=== PATIENT | male | born 1930 | race Caucasian/White ===

== ENCOUNTER 2017-01-19 19:20 | Inpatient (IN) | payer OTHER ==
[~2017-01-19] VITALS: Ht 170.2 cm; Wt 68.1 kg
[~2017-01-19 19:20] MED LIST: ADVAIR 100-501 EACH IH; ALBUTEROL2.5 MG/3 M IH; Advair HFA 115/21 IH; COUMADIN,JANTOVE5 MG PO; Cardizem CD,Cartia X PO; DIGOXIN125 MCG PO; DILTZAC PO; Diflucan PO; FINASTERIDE5 M1 PO; LANOXIN,DIGI0.125 MG PO; Levaquin PO; PREDNISONE50 MG PO; Proscar PO; Protonix PO; TAZTIA XT360 MG PO; WARFARIN SODIUM5 MG PO; ZITHROMAX Z-PA250 MG PO
[2017-01-19 19:50] LABS: MEAN PLAT.VOLUME 9.5 uM^3 (9.0-12.4); PLATELET COUNT 190 K/uL (156-360)
[2017-01-19 20:15] LABS: CHLORIDE 85 mEq/L (99-109); POTASSIUM 3.8 mEq/L (3.7-5.4); SODIUM 120 mEq/L (136-147)
[2017-01-19 20:17] LABS: GLUCOSE 117 mg/dL (70-99)
[2017-01-19 20:18] LABS: ANION GAP 9 MEQ/L (2-14)
[2017-01-19 20:21] LABS: GFR ESTIMATE (CALCULATED) > 59 mL/min/
[2017-01-19 20:22] LABS: UREA NITROGEN (BUN) 8 mg/dL (9-23)
[2017-01-19 20:24] LABS: INTER. NORMALIZED RATIO 1.2; PROTHROMBIN TIME 12.2 (9.2-11.2); PTT 27.3 (25-32)
[2017-01-19 20:26] LABS: HEMATOCRIT 30.1 % (38.0-50.0); MCH 24.4 PG (29.0-34.0); MCHC 30.9 G/DL (30.0-36.0); RBC DIS.WIDTH-CV 18.4 % (11.8-14.6); RBC DIS.WIDTH-SD 49.7 % (39-53); RED BLOOD COUNT 3.81 M/uL (4.00-5.50)
[2017-01-19 20:27] LABS: WHITE BLOOD COUNT 75.9 K/uL (4.1-10.2)
[2017-01-19 21:00] LABS: CHLORIDE 86 mEq/L (99-109); SODIUM 121 mEq/L (136-147)
[2017-01-19 21:02] LABS: GLUCOSE 112 mg/dL (70-99)
[2017-01-19 21:04] LABS: ANION GAP 9 MEQ/L (2-14); TOTAL BILIRUBIN 0.6 mg/dL (0.0-1.0)
[2017-01-19 21:06] LABS: ALKALINE PHOSPHATASE 101 IU/L (3-129); GFR ESTIMATE (CALCULATED) > 59 mL/min/
[2017-01-19 21:07] LABS: UREA NITROGEN (BUN) 8 mg/dL (9-23)
[2017-01-19 21:14] LABS: ABS NEUTROPHIL COUNT 7.7; ANISOCYTOSIS 2+; BAND NEUTROPHILS 0.9 % (0-8.0); EOSINOPHIL ABS CT 0; HEMATOLOGY COMMENT 1 OTHERS=IMMATURE LYMPHOCYTES; HYPOCHROMASIA 1+; INSTRUMENT ABS NEUTROPHIL CT 4.5 K/uL; LYMPHOCYTES 66.7 % (15.0-45.0); MICROCYTOSIS 2+; OVALOCYTES 1+; PLAT.SUFFICIENCY ADEQUATE; POLYCHROMASIA 1+; SEG.NEUTROPHILS 9.3 % (46.0-76.0); SMUDGE CELLS 59.3; STOMATOCYTES 1+
[2017-01-19] MEDS ORDERED: PROTONIX40 MG PO (23:04)
[2017-01-19] MEDS ORDERED: LANOXIN125 MCG PO (23:05)
[2017-01-19] MEDS ORDERED: ADVAIR 100/501 DISK IH (23:05)
[2017-01-19] MEDS ORDERED: LO-DOSE ASPIRIN81 M1 PO (23:05)
[2017-01-19] MEDS ORDERED: VENTOLIN HFA18 GM IH (23:06)
[2017-01-19] MEDS ORDERED: DALIRESP500 MCG PO (23:06)
[2017-01-19] MEDS ORDERED: XARELTO15 MG PO (23:06)
[2017-01-19] MEDS ORDERED: SPIRIVA1 INHALATI IH (23:07)
[2017-01-20 01:06] LABS: ADD MIUA? NO; BILIRUBIN NEGATIVE; BLOOD NEGATIVE; COLOR YELLOW ((YELLOW)); GLUCOSE (STRIP) NEGATIVE; KETONES NEGATIVE; LEUKOCYTES NEGATIVE; NITRITE NEGATIVE; PROTEIN (STRIP) NEGATIVE; SPECIFIC GRAVITY 1.009 (1.000-1.030); UCUL ADDED? NO; UROBILINOGEN 0.2 MG/DL (0.2-1.0)
[2017-01-20 03:15] VITALS: BP 133/82
[2017-01-20 04:28] LABS: BASE EXCESS 2.9 mEq/L (-3 to +3); BICARBONATE 27.9 mEq/L (22-26); CARBOXY HGB 2.2 % (0-5); METHEMOGLOBIN 1.5 % (0-1.5); PCO2 44 mm Hg (35-45); PO2 85 mm Hg (80-100); pH 7.41 (7.35-7.45)
[2017-01-20 04:29] LABS: COMMENTS - BLOOD GASES C+A+; DEVICE NC; O2 FLOW 2.5 L/MIN; SITE LR; TOTAL RESP RATE 23 resp/min
[2017-01-20 07:09] LABS: TROP-I INTERPRETATION NEGATIVE; TROPONIN-I 0.01 ng/mL (0.0-0.30)
[2017-01-20 07:30] VITALS: BP 129/78
[2017-01-20 09:08] LABS: HEMATOCRIT 28.2 % (38.0-50.0); MCH 26.5 PG (29.0-34.0); MCHC 32.3 G/DL (30.0-36.0); MCV 82.2 FL (86-99); MEAN PLAT.VOLUME 10.7 uM^3 (9.0-12.4); PLATELET COUNT 192 K/uL (156-360); RBC DIS.WIDTH-SD 51.6 % (39-53); RED BLOOD COUNT 3.43 M/uL (4.00-5.50)
[2017-01-20 09:10] LABS: WHITE BLOOD COUNT 63.5 K/uL (4.1-10.2)
[2017-01-20 09:14] LABS: ANION GAP 8 MEQ/L (2-14); CHLORIDE 89 MEQ/L (99-109); POTASSIUM 3.9 MEQ/L (3.7-5.4); SAMPLE HEMOLYSIS CHECK 0; SAMPLE ICTERIC CHECK 0; SAMPLE LIPEMIA CHECK 0; SODIUM 123 MEQ/L (136-147)
[2017-01-20 09:20] LABS: GFR ESTIMATE (CALCULATED) > 59 mL/min/; GLUCOSE 138 mg/dL (70-99); UREA NITROGEN (BUN) 6 mg/dL (9-23)
[2017-01-20 11:10] VITALS: BP 135/79
[2017-01-20 11:10] LABS: INFLUENZA A VIRAL ANTIGEN NEGATIVE; INFLUENZA B VIRAL ANTIGEN NEGATIVE
[2017-01-20 11:34] LABS: ABS NEUTROPHIL COUNT 15.4; ANISOCYTOSIS 2+; BAND NEUTROPHILS 6.3 % (0-8.0); EOSINOPHIL ABS CT 0; MICROCYTOSIS 2+; PLAT.SUFFICIENCY ADEQUATE; POIKILOCYTOSIS 1+; SMUDGE CELLS 55.9
[2017-01-20 12:58] LABS: TROP-I INTERPRETATION NEGATIVE; TROPONIN-I 0.01 ng/mL (0.0-0.30)
[2017-01-20 16:08] VITALS: BP 105/61
[2017-01-20 20:00] VITALS: BP 102/51
[2017-01-21] VITALS (7 sets, daily range): BP systolic 102–125; BP diastolic 58–70
[2017-01-21 04:31] LABS: BASE EXCESS 4.6 mEq/L (-3 to +3); BICARBONATE 29.2 mEq/L (22-26); CARBOXY HGB 1.9 % (0-5); COMMENTS - BLOOD GASES C+; DEVICE NCHH; FI02 100 %; METHEMOGLOBIN 1.9 % (0-1.5); O2 FLOW 30 L/MIN; PCO2 43 mm Hg (35-45); PO2 285 mm Hg (80-100); SITE LR; pH 7.44 (7.35-7.45)
[2017-01-21 04:32] LABS: TOTAL RESP RATE 28 resp/min
[2017-01-21 07:09] LABS: MCH 25.4 PG (29.0-34.0); MCHC 31.4 G/DL (30.0-36.0); MCV 80.9 FL (86-99); MEAN PLAT.VOLUME 9.5 uM^3 (9.0-12.4); PLATELET COUNT 242 K/uL (156-360); RBC DIS.WIDTH-CV 18.6 % (11.8-14.6); RBC DIS.WIDTH-SD 50.8 % (39-53); RED BLOOD COUNT 3.46 M/uL (4.00-5.50)
[2017-01-21 07:22] LABS: WHITE BLOOD COUNT 79.1 K/uL (4.1-10.2)
[2017-01-21 07:48] LABS: ABS NEUTROPHIL COUNT 18.8; ANISOCYTOSIS 2+; BAND NEUTROPHILS 1.9 % (0-8.0); EOSINOPHIL ABS CT 0; INSTRUMENT ABS NEUTROPHIL CT 10.2 K/uL; MICROCYTOSIS 2+; PLAT.SUFFICIENCY ADEQUATE; SEG.NEUTROPHILS 21.9 % (46.0-76.0)
[2017-01-21 08:21] LABS: ANION GAP 10 MEQ/L (2-14); CHLORIDE 93 MEQ/L (99-109); GFR ESTIMATE (CALCULATED) > 59 mL/min/; GLUCOSE 155 mg/dL (70-99); SAMPLE HEMOLYSIS CHECK 0; SAMPLE ICTERIC CHECK 0; SAMPLE LIPEMIA CHECK 0; UREA NITROGEN (BUN) 10 mg/dL (9-23)
[2017-01-21 08:26] LABS: INTERNAL CONTROL VALID? YES
[2017-01-21 08:29] LABS: SODIUM 130 MEQ/L (136-147)
[2017-01-22 04:00] VITALS: BP 135/84
[2017-01-22 07:35] LABS: HEMATOCRIT 29.9 % (38.0-50.0); MCH 24.7 PG (29.0-34.0); MCHC 29.8 G/DL (30.0-36.0); MCV 83.1 FL (86-99); MEAN PLAT.VOLUME 9.7 uM^3 (9.0-12.4); PLATELET COUNT 273 K/uL (156-360); RBC DIS.WIDTH-CV 19.4 % (11.8-14.6); RBC DIS.WIDTH-SD 55.8 % (39-53)
[2017-01-22 07:37] VITALS: BP 108/66
[2017-01-22 07:41] LABS: WHITE BLOOD COUNT 66.7 K/uL (4.1-10.2)
[2017-01-22 07:44] LABS: ANION GAP 7 MEQ/L (2-14); CHLORIDE 99 MEQ/L (99-109); GFR ESTIMATE (CALCULATED) > 59 mL/min/; GLUCOSE 152 mg/dL (70-99); POTASSIUM 4.1 MEQ/L (3.7-5.4); SAMPLE HEMOLYSIS CHECK 0; SAMPLE ICTERIC CHECK 0; SAMPLE LIPEMIA CHECK 0; SODIUM 136 MEQ/L (136-147); UREA NITROGEN (BUN) 17 mg/dL (9-23)
[2017-01-22 08:53] LABS: ABS NEUTROPHIL COUNT 14.4; ANISOCYTOSIS 2+; BAND NEUTROPHILS 0.9 % (0-8.0); EOSINOPHIL ABS CT 0; INSTRUMENT ABS NEUTROPHIL CT 9.1 K/uL; MICROCYTOSIS 2+; PLAT.SUFFICIENCY ADEQUATE; POIKILOCYTOSIS 1+; SEG.NEUTROPHILS 20.7 % (46.0-76.0); SMUDGE CELLS 52.3
[2017-01-22 11:47] VITALS: BP 127/79
[2017-01-22 16:08] VITALS: BP 107/61
[2017-01-22 20:18] VITALS: BP 109/62
[2017-01-23 00:03] VITALS: BP 125/75
[2017-01-23 04:30] VITALS: BP 116/77
[2017-01-23 05:51] LABS: ANION GAP 7 MEQ/L (2-14); CHLORIDE 97 MEQ/L (99-109); GFR ESTIMATE (CALCULATED) > 59 mL/min/; GLUCOSE 161 mg/dL (70-99); POTASSIUM 4.4 MEQ/L (3.7-5.4); SAMPLE HEMOLYSIS CHECK 0; SAMPLE ICTERIC CHECK 0; SAMPLE LIPEMIA CHECK 0; SODIUM 134 MEQ/L (136-147); UREA NITROGEN (BUN) 22 mg/dL (9-23)
[2017-01-23 06:20] LABS: HEMATOCRIT 30.6 % (38.0-50.0); MCH 24.9 PG (29.0-34.0); MCHC 29.7 G/DL (30.0-36.0); MCV 83.8 FL (86-99); MEAN PLAT.VOLUME 9.3 uM^3 (9.0-12.4); PLATELET COUNT 267 K/uL (156-360); RBC DIS.WIDTH-CV 19.6 % (11.8-14.6); RBC DIS.WIDTH-SD 57.1 % (39-53); RED BLOOD COUNT 3.65 M/uL (4.00-5.50)
[2017-01-23 06:30] LABS: WHITE BLOOD COUNT 44.2 K/uL (4.1-10.2)
[2017-01-23 07:14] LABS: ABS NEUTROPHIL COUNT 11.9; ANISOCYTOSIS 2+; BAND NEUTROPHILS 0.9 % (0-8.0); EOSINOPHIL ABS CT 0; INSTRUMENT ABS NEUTROPHIL CT 8.3 K/uL; MICROCYTOSIS 2+; PLAT.SUFFICIENCY ADEQUATE; POLYCHROMASIA 1+; SEG.NEUTROPHILS 26.1 % (46.0-76.0); SMUDGE CELLS 25.2; SPHEROCYTES 1+
[2017-01-23 07:45] VITALS: BP 105/59
[2017-01-23 15:15] VITALS: BP 125/62
[2017-01-23 19:55] VITALS: BP 111/63
[2017-01-23 23:51] VITALS: BP 120/61
[2017-01-24 04:59] VITALS: BP 136/63
[2017-01-24 06:08] LABS: ANION GAP 9 MEQ/L (2-14); CHLORIDE 98 MEQ/L (99-109); GFR ESTIMATE (CALCULATED) > 59 mL/min/; GLUCOSE 164 mg/dL (70-99); SAMPLE HEMOLYSIS CHECK 0; SAMPLE ICTERIC CHECK 0; SAMPLE LIPEMIA CHECK 0; SODIUM 135 MEQ/L (136-147); UREA NITROGEN (BUN) 25 mg/dL (9-23)
[2017-01-24 06:24] LABS: HEMATOCRIT 28.6 % (38.0-50.0); MCH 25.7 PG (29.0-34.0); MCHC 30.8 G/DL (30.0-36.0); MCV 83.4 FL (86-99); MEAN PLAT.VOLUME 9.3 uM^3 (9.0-12.4); NRBC (%) 0.1 /100 WBC (0-0); PLATELET COUNT 274 K/uL (156-360); RBC DIS.WIDTH-CV 19.5 % (11.8-14.6); RBC DIS.WIDTH-SD 56.7 % (39-53); RED BLOOD COUNT 3.43 M/uL (4.00-5.50)
[2017-01-24 08:00] VITALS: BP 116/67
[2017-01-24 11:03] LABS: ABS NEUTROPHIL COUNT 4.1; ANISOCYTOSIS 1+; EOSINOPHIL ABS CT 0; INSTRUMENT ABS NEUTROPHIL CT 6.1 K/uL; MACROCYTES 1+; PLAT.SUFFICIENCY ADEQUATE; SEG.NEUTROPHILS 13.5 % (46.0-76.0)
[2017-01-24 11:20] VITALS: BP 114/62
[2017-01-24 16:00] VITALS: BP 118/68
[2017-01-24 19:14] VITALS: BP 145/79
[2017-01-25] VITALS (7 sets, daily range): BP systolic 110–157; BP diastolic 59–99
[2017-01-26 03:57] VITALS: BP 125/76
[2017-01-26 06:46] LABS: HEMATOCRIT 29.6 % (38.0-50.0); MCHC 32.1 G/DL (30.0-36.0); MCV 84.1 FL (86-99); MEAN PLAT.VOLUME 9.2 uM^3 (9.0-12.4); NRBC (%) 0.2 /100 WBC (0-0); PLATELET COUNT 254 K/uL (156-360); RBC DIS.WIDTH-CV 20.6 % (11.8-14.6); RBC DIS.WIDTH-SD 57.2 % (39-53); RED BLOOD COUNT 3.52 M/uL (4.00-5.50); WHITE BLOOD COUNT 28.9 K/uL (4.1-10.2)
[2017-01-26 07:24] LABS: ANION GAP 7 MEQ/L (2-14); CHLORIDE 100 MEQ/L (99-109); GFR ESTIMATE (CALCULATED) > 59 mL/min/; MAGNESIUM 1.9 mg/dl (1.3-2.7); POTASSIUM 3.7 MEQ/L (3.7-5.4); SAMPLE HEMOLYSIS CHECK 0; SAMPLE ICTERIC CHECK 0; SAMPLE LIPEMIA CHECK 0; SODIUM 139 MEQ/L (136-147); UREA NITROGEN (BUN) 22 mg/dL (9-23)
[2017-01-26 07:35] LABS: GLUCOSE 114 mg/dL (70-99)
[2017-01-26 07:42] VITALS: BP 140/85
[2017-01-26 09:35] LABS: ABS NEUTROPHIL COUNT 11.1; ANISOCYTOSIS 2+; EOSINOPHIL ABS CT 0; INSTRUMENT ABS NEUTROPHIL CT 7.9 K/uL; METAMYELOCYTES 1.8 %; MICROCYTOSIS 1+; NUCLEATED RBC'S 0.9; OVALOCYTES 1+; PLAT.SUFFICIENCY ADEQUATE; POIKILOCYTOSIS 1+; POLYCHROMASIA 1+; SMUDGE CELLS 14.3; SPHEROCYTES 2+
[2017-01-26 09:36] LABS: SEG.NEUTROPHILS 38.4 % (46.0-76.0)
[2017-01-26 11:45] VITALS: BP 125/76
[2017-01-26 15:53] VITALS: BP 125/76
[2017-01-26 19:32] VITALS: BP 146/91
[2017-01-26 23:14] VITALS: BP 128/86
[2017-01-27 03:20] VITALS: BP 122/73
[2017-01-27 08:24] VITALS: BP 122/73
[2017-01-27 11:40] VITALS: BP 119/78
[2017-01-27 16:09] VITALS: BP 117/69
[2017-01-27 20:08] VITALS: BP 116/66
[2017-01-27 23:03] VITALS: BP 130/86
[2017-01-28 03:24] VITALS: BP 109/66
[2017-01-28 08:45] VITALS: BP 106/60
[2017-01-28 11:45] VITALS: BP 115/60
[2017-01-28] MEDS ORDERED: DUONEB 2.5-0.5 M3 ML AEROSOL (12:26)
[2017-01-28] MEDS ORDERED: LOPRESSOR50 MG PO (12:26)
[2017-01-28] MEDS ORDERED: CARDIZEM CD,CA240 MG PO (12:26)
[2017-01-28] MEDS ORDERED: PREDNISONE10 MG PO (12:26)
== END 2017-01-28 15:35 | DRG 189 ==
LOC: EME → EDBD 19:20 → EME 19:20 → EDOF 01-20 01:03 → 4EAST 01-20 01:03
PROVIDERS: Emergency Medicine; Family Medicine; Hospitalist; Internal Medicine; Internal Medicine Nephrology; Student in an Organized Health Care Education/Training Program
DX: J96.01 Acute respiratory failure with hypoxia (principal); J44.0 Chronic obstructive pulmonary disease with (acute) lower respiratory infection; J15.1 Pneumonia due to Pseudomonas; Y95 Nosocomial condition; J44.1 Chronic obstructive pulmonary disease with (acute) exacerbation; I48.1 Persistent atrial fibrillation; C91.10 Chronic lymphocytic leukemia of B-cell type not having achieved remission; E87.1 Hypo-osmolality and hyponatremia; E86.0 Dehydration; R79.89 Other specified abnormal findings of blood chemistry; L89.153 Pressure ulcer of sacral region, stage 3; S05.12XA Contusion of eyeball and orbital tissues, left eye, initial encounter; S51.812A Laceration without foreign body of left forearm, initial encounter; W19.XXXA Unspecified fall, initial encounter; E83.51 Hypocalcemia; I27.2 Other secondary pulmonary hypertension; I08.0 Rheumatic disorders of both mitral and aortic valves; I49.5 Sick sinus syndrome; Z95.0 Presence of cardiac pacemaker; D64.9 Anemia, unspecified; I95.9 Hypotension, unspecified; H91.93 Unspecified hearing loss, bilateral; Z85.46 Personal history of malignant neoplasm of prostate; R29.6 Repeated falls; Z92.3 Personal history of irradiation; Z92.21 Personal history of antineoplastic chemotherapy; Z85.51 Personal history of malignant neoplasm of bladder; Z79.01 Long term (current) use of anticoagulants
CPT/HCPCS: 36600; 70450; 71010; 71020; 80048; 80053; 81003; 82436; 82803; 83735; 83930; 83935; 84133; 84300; 84443; 84484; 85007; 85025; 85027; 85610; 85730; 87040; 87070; 87077; 87186; 87205; 87449; 87502; 93005; 93306; 94010; 94640; 94640 76; 94667; 94668; 94760; 94799; 97530 GP; 99202; 99281; 99285; J0456; J2543; J2920; J2930; J3370; J7030; J7050; J7512

== ENCOUNTER 2017-06-14 15:06 | Inpatient (IN) | payer OTHER ==
[~2017-06-14] VITALS: Ht 170.2 cm; Wt 57.0 kg
[~2017-06-14 15:06] MED LIST changes: +ADVAIR 100/501 DISK IH; +CARDIZEM CD,CA240 MG PO; +DALIRESP500 MCG PO; +DUONEB 2.5-0.5 M3 ML AEROSOL; +LANOXIN125 MCG PO; +LO-DOSE ASPIRIN81 M1 PO; +LOPRESSOR50 MG PO; +PREDNISONE10 MG PO; +PROTONIX40 MG PO; +SPIRIVA RESPIMAT4 GM IH; +VENTOLIN HFA18 GM IH; +XARELTO15 MG PO
[2017-06-14 15:51] LABS: HEMATOCRIT 33.2 % (38.0-50.0); MCH 25.2 PG (29.0-34.0); MCHC 31.3 G/DL (30.0-36.0); MCV 80.6 FL (86-99); MEAN PLAT.VOLUME 10.1 uM^3 (9.0-12.4); PLATELET COUNT 205 K/uL (156-360); RBC DIS.WIDTH-CV 19.1 % (11.8-14.6); RBC DIS.WIDTH-SD 46.2 % (39-53); RED BLOOD COUNT 4.12 M/uL (4.00-5.50); WHITE BLOOD COUNT 23.6 K/uL (4.1-10.2)
[2017-06-14 16:07] LABS: CHLORIDE 101 mEq/L (99-109); POTASSIUM 4.2 mEq/L (3.7-5.4); SODIUM 137 mEq/L (136-147)
[2017-06-14 16:08] LABS: GLUCOSE 112 mg/dL (70-99)
[2017-06-14 16:10] LABS: ANION GAP 10 MEQ/L (2-14)
[2017-06-14 16:12] LABS: GFR ESTIMATE (CALCULATED) > 59 mL/min/
[2017-06-14 16:13] LABS: UREA NITROGEN (BUN) 16 mg/dL (9-23)
[2017-06-14 16:19] LABS: TROP-I INTERPRETATION NEGATIVE; TROPONIN-I < 0.01 ng/mL (0.0-0.30)
[2017-06-14] MEDS ORDERED: CARDIZEM CD,CA180 MG PO (17:57)
[2017-06-14] MEDS ORDERED: PRENATAL TABLE1 EAC3 PO (17:58)
[2017-06-14] MEDS ORDERED: CALCIUM 500 MG1 EACH PO (17:58)
[2017-06-14] MEDS ORDERED: ZANTAC150 MG PO (17:58)
[2017-06-14] MEDS ORDERED: CRANBERRY500 M3 PO (17:58)
[2017-06-14] MEDS ORDERED: CLARITIN,ALAVAR10 MG PO (17:59)
[2017-06-14] MEDS ORDERED: PROBIOTIC1 EAC1 PO (17:59)
[2017-06-14] MEDS ORDERED: FLONASE16 G1 BOTH NARES (17:59)
[2017-06-14] MEDS ORDERED: VISINE A.C300 DROP/1 BOTH EYES (18:00)
[2017-06-14 22:58] VITALS: BP 101/61
[2017-06-15 01:09] LABS: TROP-I INTERPRETATION NEGATIVE; TROPONIN-I < 0.01 ng/mL (0.0-0.30)
[2017-06-15 03:45] VITALS: BP 107/58
[2017-06-15 04:48] LABS: ADD MIUA? NO; BILIRUBIN NEGATIVE; BLOOD NEGATIVE; COLOR STRAW ((YELLOW)); GLUCOSE (STRIP) NEGATIVE; KETONES NEGATIVE; LEUKOCYTES NEGATIVE; NITRITE NEGATIVE; PROTEIN (STRIP) NEGATIVE; SPECIFIC GRAVITY 1.013 (1.000-1.030); UCUL ADDED? NO; UROBILINOGEN 0.2 MG/DL (0.2-1.0)
[2017-06-15 06:32] LABS: HEMATOCRIT 30.5 % (38.0-50.0); MCH 26.1 PG (29.0-34.0); MCHC 32.5 G/DL (30.0-36.0); MCV 80.5 FL (86-99); NRBC (%) 0.1 /100 WBC (0-0); PLATELET COUNT 193 K/uL (156-360); RBC DIS.WIDTH-CV 18.2 % (11.8-14.6); RED BLOOD COUNT 3.79 M/uL (4.00-5.50); WHITE BLOOD COUNT 21.5 K/uL (4.1-10.2)
[2017-06-15 06:57] LABS: ANION GAP 7 MEQ/L (2-14); CHLORIDE 106 MEQ/L (99-109); GFR ESTIMATE (CALCULATED) > 59 mL/min/; GLUCOSE 94 mg/dL (70-99); POTASSIUM 4.1 MEQ/L (3.7-5.4); SAMPLE HEMOLYSIS CHECK 0; SAMPLE ICTERIC CHECK 0; SAMPLE LIPEMIA CHECK 0; SODIUM 141 MEQ/L (136-147); UREA NITROGEN (BUN) 14 mg/dL (9-23)
[2017-06-15 07:00] LABS: TROP-I INTERPRETATION NEGATIVE; TROPONIN-I 0.01 ng/mL (0.0-0.30)
[2017-06-15 07:57] VITALS: BP 114/73
[2017-06-15 11:22] VITALS: BP 102/65
[2017-06-15 15:41] VITALS: BP 104/64
[2017-06-15 19:34] VITALS: BP 98/64
[2017-06-15 23:48] VITALS: BP 107/73
[2017-06-16 03:41] VITALS: BP 110/66
[2017-06-16 07:20] VITALS: BP 137/71
[2017-06-16 09:55] LABS: HEMATOCRIT 33.3 % (38.0-50.0); MCH 26.3 PG (29.0-34.0); MCHC 32.4 G/DL (30.0-36.0); MEAN PLAT.VOLUME 10.6 uM^3 (9.0-12.4); PLATELET COUNT 198 K/uL (156-360); RBC DIS.WIDTH-CV 19.1 % (11.8-14.6); RBC DIS.WIDTH-SD 46.8 % (39-53); RED BLOOD COUNT 4.11 M/uL (4.00-5.50); WHITE BLOOD COUNT 18.3 K/uL (4.1-10.2)
[2017-06-16 10:10] LABS: METH RESISTANT S AUREUS PCR POSITIVE (NEGATIVE)
[2017-06-16 10:12] LABS: PROBE CHECK PASS
[2017-06-16 11:09] LABS: MAGNESIUM 1.7 mg/dl (1.3-2.7)
[2017-06-16 11:11] VITALS: BP 104/61
[2017-06-16 15:09] VITALS: BP 116/72
[2017-06-16 20:00] VITALS: BP 129/69
[2017-06-16 23:59] VITALS: BP 121/69
[2017-06-17 04:03] VITALS: BP 109/71
[2017-06-17 06:21] LABS: HEMATOCRIT 30.9 % (38.0-50.0); MCH 27.2 PG (29.0-34.0); MCHC 33.3 G/DL (30.0-36.0); MCV 81.7 FL (86-99); MEAN PLAT.VOLUME 10.2 uM^3 (9.0-12.4); NRBC (%) 0.1 /100 WBC (0-0); PLATELET COUNT 165 K/uL (156-360); RBC DIS.WIDTH-CV 19.6 % (11.8-14.6); RBC DIS.WIDTH-SD 46.8 % (39-53); RED BLOOD COUNT 3.78 M/uL (4.00-5.50); WHITE BLOOD COUNT 18.8 K/uL (4.1-10.2)
[2017-06-17 06:41] LABS: INTER. NORMALIZED RATIO 1.2; PROTHROMBIN TIME 12.8 SEC (10.2-12.9)
[2017-06-17 06:44] LABS: PTT 28.1 SEC (25-37)
[2017-06-17 07:06] LABS: ANION GAP 8 MEQ/L (2-14); CHLORIDE 107 MEQ/L (99-109); GFR ESTIMATE (CALCULATED) > 59 mL/min/; GLUCOSE 97 mg/dL (70-99); POTASSIUM 4.1 MEQ/L (3.7-5.4); SAMPLE HEMOLYSIS CHECK 0; SAMPLE ICTERIC CHECK 0; SAMPLE LIPEMIA CHECK 0; SODIUM 143 MEQ/L (136-147); UREA NITROGEN (BUN) 15 mg/dL (9-23)
[2017-06-17 07:22] LABS: BASOPHIL COUNT 0.1 K/uL (0-0.1); EOSINOPHIL (%) 1.2 % (0-5); EOSINOPHIL COUNT 0.2 K/uL (0-0.3); IMMATURE GRANULOCYTE (%) 0.2 % (0.0-0.7); INSTRUMENT ABS NEUTROPHIL CT 1.7 K/uL; LYMPHOCYTE COUNT 15.1 K/uL (1.0-2.8); MONOCYTE (%) 8.6 % (3-12); MONOCYTE COUNT 1.6 K/uL (0-0.8); NEUTROPHIL COUNT 1.7 K/uL (1.8-6.4)
[2017-06-17 07:40] VITALS: BP 97/63
[2017-06-17 09:55] LABS: TYPE OF FLUID PLEURAL
[2017-06-17 10:32] LABS: BODY FLUID RBC'S 8000 /MM^3 (0-100); BODY FLUID WBC'S 9000 /MM^3 (0-500)
[2017-06-17 10:40] LABS: BODY FLUID EOSINOPHILS 0 % (0-25); MONONUCLEAR WBC'S 100 %; POLYNUCLEAR WBC'S 0 % (0-25)
[2017-06-17 11:35] VITALS: BP 114/61
[2017-06-17 11:59] LABS: BODY FLUID LDH 133 IU/L; BODY FLUID PROTEIN < 3.0 G/DL
[2017-06-17 15:30] VITALS: BP 101/55
[2017-06-17 20:13] VITALS: BP 126/77
[2017-06-17 23:58] VITALS: BP 125/58
[2017-06-18 03:45] VITALS: BP 141/73
[2017-06-18 07:48] VITALS: BP 118/60
[2017-06-18 12:03] VITALS: BP 112/75
[2017-06-18] MEDS ORDERED: FUROSEMIDE20 MG PO (13:03)
[2017-06-18] MEDS ORDERED: AUGMENTIN875 MG PO (13:03)
== END 2017-06-18 15:45 | disposition home or self-care (01) | DRG 190 ==
LOC: EME 15:06 → EDOF 21:35 → 5SOUTH 21:35 → ENRESERV 21:38 → 5SOUTH 22:30
PROVIDERS: Hospitalist; Internal Medicine Pulmonary Disease; Nurse Practitioner Family; Radiology Diagnostic Radiology; Thoracic Surgery (Cardiothoracic Vascular Surgery)
PROC: 0W993ZZ Drainage of Right Pleural Cavity, Percutaneous Approach (ICD-10-PCS; principal; 2017-06-17)
DX: J44.0 Chronic obstructive pulmonary disease with (acute) lower respiratory infection (principal); J18.0 Bronchopneumonia, unspecified organism; J44.1 Chronic obstructive pulmonary disease with (acute) exacerbation; J90 Pleural effusion, not elsewhere classified; R91.8 Other nonspecific abnormal finding of lung field; C91.10 Chronic lymphocytic leukemia of B-cell type not having achieved remission; I08.0 Rheumatic disorders of both mitral and aortic valves; I27.2 Other secondary pulmonary hypertension; I10 Essential (primary) hypertension; I48.2 Chronic atrial fibrillation; R63.4 Abnormal weight loss; I49.3 Ventricular premature depolarization; I47.2 Ventricular tachycardia; Z68.1 Body mass index [BMI] 19.9 or less, adult; Z85.46 Personal history of malignant neoplasm of prostate; Z91.81 History of falling; Z95.0 Presence of cardiac pacemaker
CPT/HCPCS: 71020; 71250; 71275; 76942; 80048; 81003; 83605; 83615 91; 83735; 83880; 84100; 84145 90; 84157; 84484; 85025; 85027; 85379; 85610; 85730; 87040; 87070; 87075; 87077; 87081; 87205; 87641; 88108; 88305; 89051; 93005; 94640; 94640 76; 99202; 99281; 99285; J0692; J1644; J2543; J7030; J7050; J7120

== ENCOUNTER 2017-08-11 11:52 | Emergency (ER) | payer OTHER ==
[~2017-08-11] VITALS: Ht 170.2 cm; Wt 59.9 kg
[~2017-08-11 11:52] MED LIST changes: +AUGMENTIN875 MG PO; +CALCIUM 500 MG1 EACH PO; +CARDIZEM CD,CA180 MG PO; +CLARITIN,ALAVAR10 MG PO; +CRANBERRY500 M3 PO; +FLONASE16 G1 BOTH NARES; +FUROSEMIDE20 MG PO; +PRENATAL TABLE1 EAC3 PO; +PROBIOTIC1 EAC1 PO; +VISINE A.C300 DROP/1 BOTH EYES; +ZANTAC150 MG PO
[2017-08-11 13:52] VITALS: BP 121/74
== END 2017-08-11 13:50 | disposition home or self-care (01) ==
LOC: EME 11:52
PROC: 3E0234Z Introduction of Serum, Toxoid and Vaccine into Muscle, Percutaneous Approach (ICD-10-PCS; principal; 2017-08-11)
DX: S00.81XA Abrasion of other part of head, initial encounter (principal); S51.012A Laceration without foreign body of left elbow, initial encounter; S80.212A Abrasion, left knee, initial encounter; W01.0XXA Fall on same level from slipping, tripping and stumbling without subsequent striking against object, initial encounter; Y92.480 Sidewalk as the place of occurrence of the external cause; Y93.01 Activity, walking, marching and hiking; I10 Essential (primary) hypertension; J44.9 Chronic obstructive pulmonary disease, unspecified; Z85.46 Personal history of malignant neoplasm of prostate; Z85.6 Personal history of leukemia; Z92.3 Personal history of irradiation; Z95.0 Presence of cardiac pacemaker
CPT/HCPCS: 70450; 99281; 99284

== ENCOUNTER 2017-10-25 14:39 | Inpatient (IN) | payer OTHER ==
[~2017-10-25] VITALS: Ht 170.2 cm; Wt 62.6 kg
[2017-10-25 15:33] LABS: HEMATOCRIT 22.5 % (38.0-50.0); MCV 94.1 FL (86-99); MEAN PLAT.VOLUME 11.3 uM^3 (9.0-12.4); RBC DIS.WIDTH-CV 22.2 % (11.8-14.6); RBC DIS.WIDTH-SD 51.6 % (39-53)
[2017-10-25 15:34] LABS: MCH 44.8 PG (29.0-34.0); MCHC 47.6 G/DL (30.0-36.0); PLATELET COUNT 175 K/uL (156-360); RED BLOOD COUNT 2.39 M/uL (4.00-5.50); WHITE BLOOD COUNT 45.6 K/uL (4.1-10.2)
[2017-10-25 15:36] LABS: CHLORIDE 99 mEq/L (99-109); SODIUM 137 mEq/L (136-147)
[2017-10-25 15:37] LABS: GLUCOSE 101 mg/dL (70-99)
[2017-10-25 15:39] LABS: ANION GAP 11 MEQ/L (2-14)
[2017-10-25 15:41] LABS: GFR ESTIMATE (CALCULATED) > 59 mL/min/ (58.99-99999)
[2017-10-25 15:42] LABS: UREA NITROGEN (BUN) 23 mg/dL (9-23)
[2017-10-25 18:10] LABS: ADD MIUA? NO; BILIRUBIN NEGATIVE; BLOOD NEGATIVE; COLOR YELLOW ((YELLOW)); GLUCOSE (STRIP) NEGATIVE; KETONES NEGATIVE; LEUKOCYTES NEGATIVE; NITRITE NEGATIVE; PROTEIN (STRIP) NEGATIVE; SPECIFIC GRAVITY 1.011 (1.000-1.030); UCUL ADDED? NO; UROBILINOGEN 0.2 MG/DL (0.2-1.0)
[2017-10-25] MEDS ORDERED: ASPIR-LOW81 MG PO (18:44)
[2017-10-25] MEDS ORDERED: IPRATROPIUM BRO30 ML BOTH NARES (18:45)
[2017-10-25] MEDS ORDERED: MONTELUKAST SOD10 MG PO (18:45)
[2017-10-25 21:38] VITALS: BP 151/72
[2017-10-26 00:24] VITALS: BP 151/72
[2017-10-26 08:05] LABS: INTERNAL CONTROL VALID? YES
[2017-10-26 08:06] VITALS: BP 126/63
[2017-10-26 08:26] LABS: HEMATOCRIT 32.9 % (38.0-50.0); MEAN PLAT.VOLUME 10.6 uM^3 (9.0-12.4); PLATELET COUNT 190 K/uL (156-360); RBC DIS.WIDTH-SD 51.8 % (39-53)
[2017-10-26 08:46] LABS: ANION GAP 9 MEQ/L (2-14); CHLORIDE 104 MEQ/L (99-109); GFR ESTIMATE (CALCULATED) > 59 mL/min/ (58.99-99999); POTASSIUM 5.1 MEQ/L (3.7-5.4); SAMPLE HEMOLYSIS CHECK 0; SAMPLE ICTERIC CHECK 0; SAMPLE LIPEMIA CHECK 0; SODIUM 143 MEQ/L (136-147); UREA NITROGEN (BUN) 21 mg/dL (9-23)
[2017-10-26 08:47] LABS: GLUCOSE 152 mg/dL (70-99)
[2017-10-26 08:48] LABS: MCH 29.2 PG (29.0-34.0); MCHC 32.5 G/DL (30.0-36.0); MCV 89.9 FL (86-99); RED BLOOD COUNT 3.66 M/uL (4.00-5.50); WHITE BLOOD COUNT 35.7 K/uL (4.1-10.2)
[2017-10-26 15:26] VITALS: BP 124/67
[2017-10-26 22:46] VITALS: BP 120/66
[2017-10-27 07:00] LABS: MEAN PLAT.VOLUME 10.8 uM^3 (9.0-12.4); PLATELET COUNT 221 K/uL (156-360)
[2017-10-27 07:02] LABS: HEMATOCRIT 32.9 % (38.0-50.0); MCHC 30.1 G/DL (30.0-36.0); MCV 86.4 FL (86-99); RBC DIS.WIDTH-CV 16.8 % (11.8-14.6); RED BLOOD COUNT 3.81 M/uL (4.00-5.50)
[2017-10-27 07:08] LABS: WHITE BLOOD COUNT 42.8 K/uL (4.1-10.2)
[2017-10-27 07:30] LABS: ANION GAP 12 MEQ/L (2-14); CHLORIDE 105 MEQ/L (99-109); GFR ESTIMATE (CALCULATED) > 59 mL/min/ (58.99-99999); GLUCOSE 155 mg/dL (70-99); POTASSIUM 5.6 MEQ/L (3.7-5.4); SAMPLE HEMOLYSIS CHECK 0; SAMPLE ICTERIC CHECK 0; SAMPLE LIPEMIA CHECK 0; SODIUM 143 MEQ/L (136-147)
[2017-10-27 07:34] VITALS: BP 109/67
[2017-10-27 07:42] LABS: UREA NITROGEN (BUN) 32 mg/dL (9-23)
[2017-10-27 16:16] VITALS: BP 118/61
[2017-10-28 00:40] VITALS: BP 111/68
[2017-10-28 06:41] LABS: ANION GAP 11 MEQ/L (2-14); CHLORIDE 106 MEQ/L (99-109); GFR ESTIMATE (CALCULATED) > 59 mL/min/ (58.99-99999); GLUCOSE 148 mg/dL (70-99); POTASSIUM 4.5 MEQ/L (3.7-5.4); SAMPLE HEMOLYSIS CHECK 0; SAMPLE ICTERIC CHECK 0; SAMPLE LIPEMIA CHECK 0; SODIUM 143 MEQ/L (136-147); UREA NITROGEN (BUN) 35 mg/dL (9-23)
[2017-10-28 07:10] LABS: HEMATOCRIT 27.5 % (38.0-50.0); MCHC 34.2 G/DL (30.0-36.0); RBC DIS.WIDTH-CV 21.3 % (11.8-14.6)
[2017-10-28 07:34] LABS: MEAN PLAT.VOLUME 10.7 uM^3 (9.0-12.4); PLAT.SUFFICIENCY ADEQUATE; PLATELET COUNT 244 K/uL (156-360)
[2017-10-28 07:40] LABS: MCH 31.3 PG (29.0-34.0); MCV 91.7 FL (86-99); WHITE BLOOD COUNT 45.8 K/uL (4.1-10.2)
[2017-10-28 07:44] VITALS: BP 120/74
[2017-10-28 16:38] VITALS: BP 101/57
[2017-10-29] VITALS: BP 108/61
[2017-10-29 06:29] LABS: MEAN PLAT.VOLUME 10.3 uM^3 (9.0-12.4); PLATELET COUNT 253 K/uL (156-360)
[2017-10-29 06:33] LABS: HEMATOCRIT 28.1 % (38.0-50.0); MCH 29.3 PG (29.0-34.0); MCHC 32.7 G/DL (30.0-36.0); MCV 89.5 FL (86-99); NRBC (%) 0.1 /100 WBC (0-0); RBC DIS.WIDTH-CV 19.2 % (11.8-14.6); RBC DIS.WIDTH-SD 51.7 % (39-53); RED BLOOD COUNT 3.14 M/uL (4.00-5.50)
[2017-10-29 06:38] LABS: WHITE BLOOD COUNT 43.9 K/uL (4.1-10.2)
[2017-10-29 06:53] LABS: ANION GAP 10 MEQ/L (2-14); CHLORIDE 107 MEQ/L (99-109); GFR ESTIMATE (CALCULATED) > 59 mL/min/ (58.99-99999); GLUCOSE 139 mg/dL (70-99); POTASSIUM 4.6 MEQ/L (3.7-5.4); SAMPLE HEMOLYSIS CHECK 0; SAMPLE ICTERIC CHECK 0; SAMPLE LIPEMIA CHECK 0; SODIUM 144 MEQ/L (136-147); UREA NITROGEN (BUN) 32 mg/dL (9-23)
[2017-10-29 08:14] VITALS: BP 116/69
[2017-10-29] MEDS ORDERED: SPIRIVA RESPIMAT4 GM IH (13:49)
[2017-10-29] MEDS ORDERED: VENTOLIN HFA18 GM IH (13:49)
[2017-10-29] MEDS ORDERED: ADVAIR 100/501 DISK IH (13:49)
[2017-10-29] MEDS ORDERED: PREDNISONE10 MG PO (13:51)
[2017-10-29] MEDS ORDERED: GUAIFENESI100 MG/5 M PO (13:52)
== END 2017-10-29 16:04 | disposition home or self-care (01) | DRG 190 ==
LOC: EME 14:39 → EDOF 19:43 → 5EAST 19:43 → ENRESERV 19:46 → 5EAST 20:55 → ENPENDDIS 10-29 → 5EAST 10-29 16:04
PROVIDERS: Hospitalist; Internal Medicine; Internal Medicine Pulmonary Disease
DX: J44.0 Chronic obstructive pulmonary disease with (acute) lower respiratory infection (principal); J15.1 Pneumonia due to Pseudomonas; J15.212 Pneumonia due to Methicillin resistant Staphylococcus aureus; J44.1 Chronic obstructive pulmonary disease with (acute) exacerbation; J96.01 Acute respiratory failure with hypoxia; I10 Essential (primary) hypertension; Z95.0 Presence of cardiac pacemaker; C91.10 Chronic lymphocytic leukemia of B-cell type not having achieved remission; J98.11 Atelectasis; I48.2 Chronic atrial fibrillation; K21.9 Gastro-esophageal reflux disease without esophagitis; Z87.01 Personal history of pneumonia (recurrent); R91.1 Solitary pulmonary nodule; Z85.46 Personal history of malignant neoplasm of prostate
CPT/HCPCS: 71020; 71250; 80048; 81003; 83605; 85027; 87040; 87070; 87077; 87147; 87186; 87205; 87449; 87502; 94640; 94640 76; 94799; 99202; 99281; 99285; J0456; J0692; J0696; J1644; J2920; J3370; J7030